=== PATIENT | female | born 1985 | race Caucasian/White ===

== ENCOUNTER 2024-03-01 15:22 | Inpatient (IN) ==
[2024-03-01] MEDS ORDERED: LIDOCAINE 1% LOCAL 20 ML VIAL INFIL PRN (15:33)
[2024-03-01] MEDS: LACTATED RINGER'S 1,000 ML IV PRN (16:02)
[2024-03-01] MEDS: PENICILLIN GK 6 MU in DEXTROSE 5% 250 ML IV STA (16:02)
[2024-03-01] MEDS ORDERED: PROMETHAZINE HCL 6.25 MG in SODIUM CHLORIDE 0.9% 50 ML IV PRN (16:05)
[2024-03-01] MEDS ORDERED: NALOXONE HCL 1 MG in SODIUM CHLORIDE 0.9% 1,000 ML IV PRN (16:05)
[2024-03-01] MEDS ORDERED: ePHEDrine sulfate 50 MG/ML AMP IV PRN (16:05)
[2024-03-01] MEDS ORDERED: NALOXONE HCL 0.4 MG/1 ML VIAL/CARP IV PRN (16:05)
[2024-03-01] MEDS ORDERED: BUPIVACAINE 0.25% PF 30 ML VIAL EPI PRN (16:05)
[2024-03-01] MEDS ORDERED: LIDOCAINE 2% MPF LOCAL 5 ML VIAL EPI PRN (16:05)
[2024-03-01] MEDS ORDERED: SODIUM CHLORIDE 0.9% PF INJ 10 ML VIAL EPI PRN (16:05)
[2024-03-01] MEDS ORDERED: diphenhydrAMINE 50 MG/ML VIAL IV PRN (16:05)
[2024-03-01] MEDS ORDERED: ROPIVACAINE 0.5% PF 5 MG/ML 20 ML VIAL EPI PRN (16:05)
[2024-03-01] MEDS ORDERED: fentaNYL citrate PF 100 MCG/2 ML VIAL EPI PRN (16:05)
[2024-03-01] MEDS ORDERED: NALBUPHINE HCL 5 MG in SYRINGE 0 ML IV PRN (16:05)
[2024-03-01] MEDS ORDERED: fentANYL 2 MCG/ML BUPIVacaine 0.125%-NSS 100ML BAG EPI PRN (16:05)
--- NOTE | 2024-03-01 16:05 | Anesthesiology Consultation ---
Date of Service March 01, 2024 Assessment & Plan Chart Review Chart Review: Patient NOT seen in Pre Admission Testing and Acceptable Risk for Labor Epidural Consults Requested none ASA ASA2 Proposed Anesthesia Anesthesia Type: Labor Epidural Risk / Benefits Reviewed With: PT / POA / Parent / Guardian, Accepts Plan and Informed Consent Obtained History Height/Weight Height: 5 ft 2 in Allergies Allergy/AdvReac Type Severity Reaction Status Date / Time No Known Allergies Allergy Verified 03/01/24 11:19 Medications Home Medications Medication Instructions Recorded Confirmed Last Taken citalopram [Celexa] 20 mg PO DAILY 07/24/23 03/01/24 02/29/24 levothyroxine 50 mcg capsule 75 mcg PO DAILY 07/24/23 03/01/24 03/01/24 21-iron fu-folic acid PO 07/24/23 03/01/24 02/29/24 [ Complete] Active Medications Generic Name Dose Route Start Last Admin Trade Name Freq PRN Reason Stop Dose Admin Lactated Ringer's 1,000 mls @ 125 mls/hr 03/01/24 15:33 03/01/24 16:02 Lr IV 03/03/24 15:32 999 mls/hr .Q8H PRN Administration L&D Protocol Protocol Penicillin G Potassium 6 mu/ 262 mls @ 262 mls/hr 03/01/24 15:33 03/01/24 16:02 Dextrose IV 03/01/24 16:32 262 mls/hr NOW STA Administration Past Medical History Medical History Depression with anxiety History of chicken pox Exercise / Class Metabolic Activity II 4-5 Yardwork/Stairs/Walk up hill Past Family History Family History Aunt Ovarian cancer Breast cancer Denies family history of Colorectal cancer Past Surgical History Surgical History No history of previous surgery Past Anesthesia History No Hx of Anesthesia Complications and No Family Hx of Anesthesia Complications History of PONV No Hx of PONV and No Hx of Motion Sickness Social History Smoking Status: Never smoker Do You Dip or Chew Tobacco: No Hx Alcohol Use: No Hx Substance Use: No Physical Exam Vital Signs Last Vital Signs Temp 37.3 C 03/01/24 15:35 Pulse 85 03/01/24 16:03 Resp 20 03/01/24 15:35 BP 130/90 03/01/24 15:35 Pulse Ox 98 03/01/24 16:03 ENMT Mouth: no dentition abnormality Thyromental Distance: > or= 3.5 Finger Breadths Mallampati Class: II Neck normal visual inspection Respiratory normal respiratory effort Auscultation: lungs clear to auscultation bilaterally Cardiovascular Rate/Rhythm: regular rate and regular rhythm Psychiatric Orientation: alert
[2024-03-01] MEDS: ONDANSETRON INJ 2 MG/ML 2 ML VIAL IV PRN (16:13)
[2024-03-01] MEDS: LIDOCAINE 2%/EPINEPHRINE 1:200,000 20 ML PF ONE (16:20)
[2024-03-01] MEDS: fentANYL 2 MCG/ML BUPIVacaine 0.125%-NSS 100ML BAG ONE (16:20)
[2024-03-01] MEDS: BUPIVACAINE 0.25% PF 30 ML VIAL ONE (16:20)
[2024-03-01 16:24] LABS: Hematocrit (blood only) 34.1 % (37.0-47.0); Mean Corpuscular Hemoglobin 32.6 pg (25.0-34.0); Mean Corpuscular Hgb Conc 35.2 g/dL (32.0-36.0); Mean Corpuscular Volume 92.7 fL (80.0-100.0); Mean Platelet Volume 11.7 fL (9.4-12.4); Platelet Count 139 K/uL (130-400); RDW Coefficient of Variation 13.7 % (11.5-14.5); RDW Standard Deviation 46.4 fL (36.4-46.3); Red Blood Count 3.68 M/uL (4.20-5.40); White Blood Count 12.74 K/ul (4.8-10.8)
[2024-03-01] MEDS: ePHEDrine sulfate 50 MG/ML AMP ONE (16:27)
[2024-03-01] MEDS: fentaNYL citrate PF 100 MCG/2 ML VIAL ONE (16:27)
[2024-03-01] MEDS: SODIUM CHLORIDE 0.9% PF INJ 10 ML VIAL EPI STA (17:12)
[2024-03-01] MEDS: LIDOCAINE 2%/EPINEPHRINE 1:200,000 20 ML PF EPI STA (17:12)
[2024-03-01] MEDS: BUPIVACAINE 0.25% PF 30 ML VIAL EPI STA (17:12)
[2024-03-01] MEDS: fentaNYL citrate PF 100 MCG/2 ML VIAL EPI STA (17:12)
[2024-03-01] MEDS: SODIUM CHLORIDE 0.9% PF INJ 10 ML VIAL ONE (17:12)
[2024-03-01] MEDS: PENICILLIN GK 3 MU in DEXTROSE 5% 100 ML IV PRN (19:26)
[2024-03-01] MEDS: OXYTOCIN 30 UNITS/NSS 30 UNITS/500 ML BAG IV PRN (20:11)
--- NOTE | 2024-03-01 20:22 | Delivery Summary ---
Vaginal Delivery Summary Date of Service March 01, 2024 Vaginal Delivery Summary and 1st Degree LAC Spontaneous vaginal livery the patient arrived in active labor with 7 cm requested epidural at that time penicillin was started. Her membranes ruptured spontaneously and then the baby was +2 station at this stage she started to push delivering a baby in occiput anterior position fluid was clear there was no nuchal cord after delivery of the head easy delivery with gentle traction on the baby subsequent delivery of the shoulders and body live vigorous male cord clamped and cut cord blood obtained placenta removed with gentle traction IV Pitocin started uterine tone improved small first-degree tear repaired with 3-0 Vicryl sponge and instrument counts correct quantitative blood loss 192 mL [facility]PG Vaginal Delivery Charge Delivery Type Details: and 1st Degree LAC
[2024-03-01] MEDS ORDERED: ACETAMINOPHEN 325 MG TAB PO PRN (20:23)
[2024-03-01] MEDS ORDERED: OXYTOCIN 30 UNITS/NSS 30 UNITS/500 ML BAG IV PRN (20:23)
[2024-03-01] MEDS ORDERED: HYDROCORTISONE ACETATE 25 MG SUPP PR PRN (20:23)
[2024-03-01] MEDS ORDERED: bisacodyL 10 MG SUPP PR PRN (20:23)
[2024-03-01] MEDS: DOCUSATE SODIUM 100 MG CAP PO SCH (21:29)
[2024-03-01] MEDS: DIPHTHER/TETAN/PERTUS Vaccine (Tdap, Adol/Adult) 0.5mL IM ONE (21:30)
[2024-03-01] MEDS ORDERED: Nursing to Pharmacy Communication SCH (21:45)
[2024-03-02] MEDS: CITALOPRAM 20 MG TAB PO SCH (00:01)
[2024-03-02] MEDS ORDERED: Nursing to Pharmacy Communication SCH (00:45)
[2024-03-02] MEDS: IBUPROFEN 600 MG TAB PO PRN (01:45)
[2024-03-02] MEDS: BENZOCAINE 20% SPRY 85 APPLN/85 GM CAN EXT PRN (01:45)
[2024-03-02] MEDS: LEVOTHYROXINE SODIUM 75 MCG TABLET PO SCH (05:56)
[2024-03-02 06:14] LABS: Hematocrit (blood only) 28.2 % (37.0-47.0); Hemoglobin 9.7 g/dl (12.0-16.0); Mean Corpuscular Hgb Conc 34.4 g/dL (32.0-36.0); Mean Corpuscular Volume 93.1 fL (80.0-100.0); Mean Platelet Volume 11.6 fL (9.4-12.4); Platelet Count 123 K/uL (130-400); RDW Coefficient of Variation 13.7 % (11.5-14.5); RDW Standard Deviation 46.5 fL (36.4-46.3); Red Blood Count 3.03 M/uL (4.20-5.40)
--- NOTE | 2024-03-02 06:31 | Obstetrical Progress Note ---
Date of Service March 02, 2024 Assessment & Plan (1) Encounter for care and examination after delivery: Plan 38 y/o PPD# 1 s/p Doing well this morning Vital signs reviewed Rubella immune, B+ Encourage ambulation Encourage breast feeding Continue post care Admission and Anticipated Discharge Date Admission Date: March 01, 2024 Supervising Physician Co-Signing Physician Notes Resident Physician Supervision Note: I interviewed and examined the patient. Discussed with Lady Swenson and agree with findings and plan as documented in the note. Any exceptions or clarifications are listed here: [None] Documented By: Cheyenne Medina MD, FACOG Subjective 38 yo post- day 1 s/p Ambulation: ambulating normally Voiding: no voiding problems Passing Gas:: Yes Diet Tolerance:: regular diet Lochia:: Small Feeding Type:breast feeding Current Pain Level: mild Resting comfortably this AM in NAD. Denies DAVIES, CP, SOB, N/V/D, LE pain/swelling. Review of Systems Review of Systems: All systems reviewed & are unremarkable except as noted in HPI & below Physical Exam Physical Exam: General: patient resting comfortably, NAD, non-toxic in appearance, AA&O x 4, answers questions appropriately. Heart: +S1/S2, regular, no m/r/g Lungs: equal air entry bilaterally, no rales/rhonchi/wheezes Abd: +BS, soft, NT/ND, uterine fundus firm at umbilicus Ext: warm, no clubbing/cyanosis or edema, Allyson's neg. Neuro: nonfocal, patient AA&O x 4, speech intact, no facial droop, moving all extremities on command. Results & Data Vital Signs (Past 12 Hours) Vital Signs Temp Pulse Pulse Resp BP BP Pulse Ox 03/02/24 04:00 37.1 C 72 18 135/88 97 03/01/24 23:00 37.2 C 82 18 130/84 97 03/01/24 22:23 81 144/81 H 03/01/24 22:20 18 03/01/24 22:14 81 119/69 03/01/24 21:59 80 124/66 03/01/24 21:50 18 03/01/24 21:44 76 135/82 03/01/24 21:29 83 132/89 03/01/24 21:20 16 03/01/24 21:14 81 131/77 03/01/24 21:05 18 03/01/24 20:59 82 134/77 03/01/24 20:50 18 03/01/24 20:44 82 137/82 03/01/24 20:37 83 137/72 03/01/24 20:35 16 03/01/24 20:29 88 151/67 H 03/01/24 20:22 88 144/63 H 03/01/24 20:20 18 03/01/24 20:14 152/69 H 03/01/24 20:03 116 H 81 L 03/01/24 20:01 116 H 86 L 03/01/24 20:00 111 H 152/70 H 03/01/24 19:58 103 H 98 03/01/24 19:54 97 H 90 03/01/24 19:53 96 H 99 03/01/24 19:48 109 H 100 03/01/24 19:44 88 138/83 03/01/24 19:43 101 H 99 03/01/24 19:42 104 H 88 L 03/01/24 19:38 99 H 100 03/01/24 19:37 93 H 92 03/01/24 19:33 89 100 03/01/24 19:30 90 137/79 03/01/24 19:29 94 H 139/76 03/01/24 19:28 91 H 100 03/01/24 19:23 100 H 100 03/01/24 19:18 93 H 100 03/01/24 19:15 37.2 C 03/01/24 19:14 85 136/73 03/01/24 19:13 98 H 100 03/01/24 19:08 93 H 100 03/01/24 19:03 85 100 03/01/24 18:59 90 104/65 03/01/24 18:58 83 100 03/01/24 18:53 83 100 03/01/24 18:48 88 100 03/01/24 18:44 83 20 135/75 03/01/24 18:43 77 100 03/01/24 18:38 85 100 03/01/24 18:33 80 100 O2 Del Method 03/02/24 04:00 Room Air 03/01/24 23:00 Room Air 03/01/24 22:23 03/01/24 22:20 03/01/24 22:14 03/01/24 21:59 03/01/24 21:50 03/01/24 21:44 03/01/24 21:29 03/01/24 21:20 03/01/24 21:14 03/01/24 21:05 03/01/24 20:59 03/01/24 20:50 03/01/24 20:44 03/01/24 20:37 03/01/24 20:35 03/01/24 20:29 03/01/24 20:22 03/01/24 20:20 03/01/24 20:14 03/01/24 20:03 03/01/24 20:01 03/01/24 20:00 03/01/24 19:58 03/01/24 19:54 03/01/24 19:53 03/01/24 19:48 03/01/24 19:44 03/01/24 19:43 03/01/24 19:42 03/01/24 19:38 03/01/24 19:37 03/01/24 19:33 03/01/24 19:30 03/01/24 19:29 03/01/24 19:28 03/01/24 19:23 03/01/24 19:18 03/01/24 19:15 03/01/24 19:14 03/01/24 19:13 03/01/24 19:08 03/01/24 19:03 03/01/24 18:59 03/01/24 18:58 03/01/24 18:53 03/01/24 18:48 03/01/24 18:44 03/01/24 18:43 03/01/24 18:38 03/01/24 18:33 Resident Activity Tracking Resident Involvement: Resident Care Provided Care Provided: OB Delivery
[2024-03-02] MEDS: PRENATAL VITAMIN 1 TAB PO SCH (07:45)
[2024-03-02] MEDS ORDERED: CITALOPRAM 20 MG TAB PO SCH (09:00)
[2024-03-02] MEDS ORDERED: LEVOTHYROXINE SODIUM 75 MCG TABLET PO SCH (09:00)
--- NOTE | 2024-03-02 09:27 | Anesthesia Procedure Note ---
Date of Service March 02, 2024 Anesthesia Post Epidural Note Vital Signs Vital Signs: Temp Pulse Resp BP Pulse Ox O2 Del Method 36.9 C 77 18 125/81 97 Room Air 03/02/24 08:15 03/02/24 08:15 03/02/24 08:15 03/02/24 08:15 03/02/24 04:00 03/02/24 08:15 Pain Intensity Bilateral Abdomen: Pain Intensity: 0 Notes Mental Status: alert / awake / arousable and participated in evaluation Nausea / Vomiting: adequately controlled Pain: adequately controlled Airway Patency, RR, SpO2: stable & adequate BP & HR: stable & adequate Hydration State: stable & adequate Neuraxial Anesthesia: was administered and sensory block is resolving Anesthetic Complications: no major complications apparent and Pt Satisfied with anesthetic care Epidural: Removed without complications and With tip intact
[2024-03-02] MEDS: bisacodyL 5 MG TABEC PO SCH (20:19)
--- NOTE | 2024-03-03 07:52 | Obstetrical Progress Note ---
Date of Service March 03, 2024 Assessment & Plan (1) Encounter for care and examination after delivery: 38 yo PP2 from , doing well -Meeting all pp milestones -Rh+/rubella immune/ -f/u 6 weeks for appt, dc home Subjective Ambulation: ambulating normally Voiding: no voiding problems Passing Gas:: Yes Diet Tolerance:: regular diet Lochia:: Small Feeding Type:: breast feeding Pain well managed with medication Review of Systems Denies fevers, chills, n/v, DAVIES, CP, SOB Physical Exam Constitutional WD/WN, vitals as above no acute distress Respiratory normal respiratory effort, lungs clear to auscultation Cardiovascular RRR, no murmur, no edema Gastrointestinal (Abdomen) Percussion/Palpation: abdomen soft; abdomen nontender fundus firm at umbilicus and NT Musculoskeletal BLE symmetric, nonerythematous, nontender Results & Data Vital Signs (Past 12 Hours) Vital Signs Temp Pulse Resp BP Pulse Ox O2 Del Method 03/02/24 23:35 98.8 F 78 18 134/79 97 Room Air
== END 2024-03-03 11:00 | disposition home or self-care (01) | DRG 807 ==
LOC: OPB 15:22 → 4S1 15:23 → 4E2 23:00